=== PATIENT | female | born 1945 | race Caucasian/White ===

== ENCOUNTER 2016-10-12 07:49 | Day surgery (SDC) | payer MEDICARE, BC ==
[~2016-10-12] VITALS: Ht 170.2 cm; Wt 94.8 kg
--- NOTE | 2016-10-13 06:19 | OR ---
ADMIT: 10/12/2016 RM/LOC: [facility] MR#: [id number] [address] [id number] [place] [address] Operative/Delivery Room Report SEX: F AGE: 71 : 1945 SURGERY DATE: 10/12/2016 SURGEON: Tanner Hdez MD PROCEDURE: Total colonoscopy. PREOPERATIVE DIAGNOSIS: Screening colonoscopy. POSTOPERATIVE DIAGNOSIS: Left-sided diverticulosis. DESCRIPTION OF PROCEDURE: The patient was brought to the procedure room and placed in left lateral decubitus position. Informed consent had been obtained preoperatively. The risks and benefits including, but not limited to, perforation, sedation, bleeding were discussed with the patient and agreed upon. All questions were answered, alternatives discussed, and the patient agreed. TIVA was provided by the [employer] with propofol. Anal inspection, digital examination revealed no abnormalities or obstructing masses. Olympus videoendoscope, model CF-H180AL, was inserted into the rectum and advanced to cecum without difficulty. The appendiceal orifice and ileocecal valve were identified. The valve could not be cannulated due to position. The scope was slowly withdrawn through a normal cecum, ascending, and transverse colon. In the descending and sigmoid, there were scattered wide mouth diverticula present without mucosal abnormality. Rectum appeared normal. Scope was retroflexed. The anal verge appeared normal. The patient tolerated the procedure well. No complications were expected. There was no blood loss during the procedure. She will call me if she has any postoperative problems. I would recommend she have repeat colonoscopy in 10 years unless signs or symptoms develop in the interval. Tanner Hdez MD/ tito JOB #: [id number] CC: Tanner Hdez, Attending Physician Dasia Cain, Family Physician
[2017-03-29] MEDS ORDERED: CALTRATE-600 D600 MG PO (19:36)
[2017-03-29] MEDS ORDERED: VITAMIN D-32000 UNI1 PO (19:37)
[2017-03-29] MEDS ORDERED: METHOTREXATE2.5 MG PO (19:37)
[2017-03-29] MEDS ORDERED: ATACAND32 MG PO (19:37)
[2017-03-29] MEDS ORDERED: FOLVITE-DPS1 MG PO (19:37)
[2017-03-29] MEDS ORDERED: OMEGA-31000 MG PO (19:38)
[2017-03-29] MEDS ORDERED: ALEVE220 M1 PO (19:38)
[2017-03-29] MEDS ORDERED: ZANTAC DPS150 MG PO (19:39)
[2017-03-29] MEDS ORDERED: ZOCOR DPS10 MG PO (19:39)
[2017-03-29] MEDS ORDERED: METAMUCIL POWD575 G1 PO (19:39)
[2017-03-29] MEDS ORDERED: NORCO 5-325 TA1 EACH PO (19:40)
[2017-03-29] MEDS ORDERED: TYLENOL DPS325 MG PO (19:40)
[2017-03-29] MEDS ORDERED: ULTRAM DPS50 MG PO (19:40)
[2017-03-29] MEDS ORDERED: AUGMENTIN 875-1 EACH PO (19:40)
[2017-03-29] MEDS ORDERED: [UNRECOGNIZED DRUG - OTHER] PO (19:41)
[2017-03-29] MEDS ORDERED: HYDROPHOR OINT450 GM TP (19:41)
[2017-03-29] MEDS ORDERED: VIBRAMYCIN-DPS100 M1 PO (19:41)
[2017-03-29] MEDS ORDERED: MIRALAX PACKET17 GM PO (19:41)
== END 2016-10-12 10:02 | disposition home or self-care (01) ==
LOC: SSS 07:49
PROC: 0DJD8ZZ Inspection of Lower Intestinal Tract, Via Natural or Artificial Opening Endoscopic (ICD-10-PCS; principal; 2016-10-12)
DX: Z12.11 Encounter for screening for malignant neoplasm of colon (principal); K57.30 Diverticulosis of large intestine without perforation or abscess without bleeding; I10 Essential (primary) hypertension; E78.00 Pure hypercholesterolemia, unspecified; E66.9 Obesity, unspecified; M06.9 Rheumatoid arthritis, unspecified; Z98.890 Other specified postprocedural states; Z79.899 Other long term (current) drug therapy; Z79.52 Long term (current) use of systemic steroids